=== PATIENT | female | born 1995 | race Caucasian/White ===

== ENCOUNTER 2016-12-05 12:47 | Emergency (ER) | payer OTHER ==
[~2016-12-05] VITALS: Ht 154.9 cm; Wt 80.4 kg
[~2016-12-05 12:47] MED LIST: BENA25MI PO; PRED50TA PO
[2016-12-05 13:03] VITALS: BP 125/75; PULSE 86; RESP 18; TEMP 99; O2SAT 98
--- NOTE | 2016-12-05 15:04 | PD ---
HPI Chief Complaint: Cold / Flu Symptoms Time Seen by Provider: 14:57 Travel History International Travel<30 days: No Contact w/Intl Traveler<30days: No Traveled to known affect area: No History of Present Illness HPI 21-year-old female presents to the emergency room for evaluation of sore throat and cough for the past 2 days. Patient reports history of chronic strep throat. States sore throat started 2 days ago with extreme pain upon swallowing ; nonproductive cough started today. Denies fever, chills, nausea, vomiting. She has not taken anything for her symptoms. No chronic medical conditions or daily medications. PFSH Past Medical History ADHD: Yes Autoimmune Disease: No Anxiety: Yes Depression: Yes Cancer: No Cardiovascular Problems: No Developmental Delay: No Diabetes: No Diminished Hearing: No Gastrointestinal Disorders: No Genitourinary: No Headaches: Yes Hypertension: No Musculoskeletal: Yes (ACL repair left knee in Jan 2012 and Oct 2011) Neurologic: Yes Psychiatric: Yes (PTSD) Respiratory: No Immunizations Current: Yes Migraines: No Seizures: Yes (ADVERSE MEDICATION REACTION) Thyroid Disease: No Ulcer: Yes PNEUMOCCOCAL Vaccine (Year): 2009 ?: Not LMP: 1 week ago Menopausal: No : 0 Para: 0 Miscarriage: 0 : 0 Past Surgical History Section: No Hysterectomy: No Oral Surgery: Yes (GUM SURGERY) Social History Alcohol Use: Yes (daily) Tobacco Use: Yes (1ppd) Substance Use: No Allergies-Medications (Allergen,Severity, Reaction): Coded Allergies: Bee Sting (Verified Allergy, Severe, Anaphylaxis, 12/05/16) Benadryl (Verified Allergy, Severe, CAN NOT TOLERATE IV MED, 12/05/16) Cinnamon (Verified Allergy, Severe, THROAT CLOSING UP, 12/05/16) Concerta (Verified Allergy, Severe, PARALYZES HALF OF BODY, 12/05/16) Lortab (Verified Allergy, Severe, 12/05/16) Morphine (Verified Allergy, Severe, ITCHING/HIVES, 12/05/16) MOTHER STATES ITCHING AND HIVES Toradol (Verified Allergy, Severe, DYSTONIC REACTION, 12/05/16) MOTHER STATES DYSTONIC REACTION Percocet (Verified Adverse Reaction, Intermediate, VOMITING, 12/05/16) MOTHER STATES VOMITTING Reported Meds & Prescriptions Reported Meds & Active Scripts Active No Active Prescriptions or Reported Medications Review of Systems Except as stated in HPI: all other systems reviewed are Neg Physical Exam Narrative GENERAL: Well-nourished, well-developed female in no acute distress. Afebrile. Ambulatory. SKIN: Warm and dry. HEAD: Normocephalic. EYES: No scleral icterus. No injection or drainage. ENT: Mucosa pink and moist. Moderate erythema with bilateral exudates. No uvular edema. No uvular, palatal, or tonsillar deviation. Airway patent. Nasal turbinates appear normal without nasal blood, purulent drainage or septal hematoma. EARS: Bilateral pinnae and external canals appear within normal limits. Bilateral tympanic membranes without erythema, dullness or perforation. NECK: Supple, trachea midline. No JVD or lymphadenopathy. CARDIOVASCULAR: Regular rate and rhythm without murmurs, gallops, or rubs. RESPIRATORY: Breath sounds equal bilaterally. No accessory muscle use. Data Data Last Documented VS Vital Signs Date Time Temp Pulse Resp B/P Pulse Ox O2 Delivery O2 Flow Rate FiO2 12/05/16 13:03 99.0 86 18 125/75 98 Orders Group A Rapid Strep Screen (12/05/16 14:43) [facility] Medical Decision Making Medical Screen Exam Complete: Yes Emergency Medical Condition: Yes Medical Record Reviewed: Yes Differential Diagnosis Streptococcal pharyngitis versus viral pharyngitis versus upper respiratory infection Narrative Course 21-year-old female presents to the emergency room for evaluation of sore throat and nonproductive cough. Sore throat started 2 days ago, cough started today. No history of fever. Vital signs stable. Patient is well-appearing overall. Physical exam reveals moderate erythema of the tonsils with bilateral exudates. Rapid strep is positive. Patient discharged with prescription for amoxicillin and told to follow up with a primary care physician or return to the emergency room for worsening symptoms. She understands and agrees to this plan. Diagnosis Primary Impression: Acute streptococcal pharyngitis Referrals: Primary Care Physician Patient Instructions: General Instructions, Strep Throat (ED) Additional Instructions: Rest and drink plenty of fluids. Take amoxicillin as directed, until gone. Take ibuprofen with food as directed, as needed for pain. Follow-up with a primary care physician. Return to the emergency room for worsening symptoms. Med/Other Pt SpecificInfo: Prescription(s) given Scripts No Active Prescriptions or Reported Meds Disposition: 01 DISCHARGE HOME Condition: Stable Nan Snyder Dec 05, 2016 15:04
[2016-12-05] MEDS ORDERED: AMOX500T PO (15:36)
== END 2016-12-05 15:46 | disposition home or self-care (01) ==
LOC: PHED 12:47 → PHEFT 15:46
DX: J02.0 Streptococcal pharyngitis (principal); B95.8 Unspecified staphylococcus as the cause of diseases classified elsewhere
CPT/HCPCS: 87880; 99283

== ENCOUNTER 2017-04-03 22:16 | Emergency (ER) | payer OTHER ==
[~2017-04-03] VITALS: Ht 154.9 cm; Wt 81.5 kg
[~2017-04-03 22:16] MED LIST changes: +AMOX500T PO; -BENA25MI PO; -PRED50TA PO
[2017-04-03 22:37] VITALS: BP 110/69; PULSE 73; RESP 15; TEMP 98.4; O2SAT 100
[2017-04-03] MEDS ORDERED: PRED20 PO (22:58)
[2017-04-03] MEDS ORDERED: diphenhydrAMINE HCL 50 MG CAP PO ONE (23:00)
[2017-04-03] MEDS ORDERED: predniSONE 20 MG TAB PO ONE ×2 (23:00→23:15)
[2017-04-03] MEDS ORDERED: EPINEPHrine HCL (1:1000) 1 MG/ML VIAL IM ONE (23:00)
--- NOTE | 2017-04-03 23:02 | PD ---
HPI Chief Complaint: Allergic/Adverse Reaction Time Seen by Provider: 22:46 Travel History International Travel<30 days: No Contact w/Intl Traveler<30days: No Traveled to known affect area: No History of Present Illness HPI This 21-year-old female is complaining of shortness of breath. 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 She says is quite a severe allergy. She has been intubated because of that. Today she was exposed to a small amount of salt at work. She left work and went home and then decided to come here because she is having persistent shortness of breath. She does not have any rash. PFSH Past Medical History ADHD: Yes Autoimmune Disease: No Anxiety: Yes Depression: Yes Cancer: No Cardiovascular Problems: No Developmental Delay: No Diabetes: No Diminished Hearing: No Gastrointestinal Disorders: No Genitourinary: No Headaches: Yes Hypertension: No Musculoskeletal: Yes (ACL repair left knee in Jan 2012 and Oct 2011) Neurologic: Yes Psychiatric: Yes (PTSD) Respiratory: No Immunizations Current: Yes Migraines: No Seizures: Yes (ADVERSE MEDICATION REACTION) Thyroid Disease: No Ulcer: Yes PNEUMOCCOCAL Vaccine (Year): 2009 ?: Not LMP: 03-20-17 Menopausal: No : 0 Para: 0 Miscarriage: 0 : 0 Past Surgical History Section: No Hysterectomy: No Oral Surgery: Yes (GUM SURGERY) Social History Alcohol Use: Yes (daily) Tobacco Use: Yes (1ppd) Substance Use: No Allergies-Medications (Allergen,Severity, Reaction): Coded Allergies: Bee Sting (Verified Allergy, Severe, Anaphylaxis, 04/03/17) Benadryl (Verified Allergy, Severe, CAN NOT TOLERATE IV MED, 04/03/17) Cinnamon (Verified Allergy, Severe, THROAT CLOSING UP, 04/03/17) Concerta (Verified Allergy, Severe, PARALYZES HALF OF BODY, 04/03/17) Lortab (Verified Allergy, Severe, 04/03/17) Morphine (Verified Allergy, Severe, ITCHING/HIVES, 04/03/17) MOTHER STATES ITCHING AND HIVES Toradol (Verified Allergy, Severe, DYSTONIC REACTION, 04/03/17) MOTHER STATES DYSTONIC REACTION Percocet (Verified Adverse Reaction, Intermediate, VOMITING, 04/03/17) MOTHER STATES VOMITTING Reported Meds & Prescriptions Reported Meds & Active Scripts Active Amoxicillin 500 Mg Tab 500 Mg PO BID 10 Days Review of Systems General / Constitutional: No: Fever, Chills Eyes: No: Diploplia, Blurred Vision HENT: No: Headaches, Vertigo Cardiovascular: No: Chest Pain or Discomfort Respiratory: Positive: Shortness of Breath, Wheezing Gastrointestinal: No: Vomiting, Diarrhea Genitourinary: No: Urgency, Frequency Musculoskeletal: No: Myalgias, Arthralgias Skin: No Rash, No Itching Physical Exam Narrative GENERAL:Well-developed female SKIN: Focused skin assessment warm/dry. HEAD: Atraumatic. Normocephalic. EYES: Pupils equal and round. No scleral icterus. No injection or drainage. ENT: No nasal bleeding or discharge. Mucous membranes pink and moist. Posterior pharynx is erythematous NECK: Trachea midline. No JVD. No adenopathy CARDIOVASCULAR: Regular rate and rhythm. No murmur appreciated. RESPIRATORY: No accessory muscle use. There are bilateral expiratory wheezes GASTROINTESTINAL: Abdomen soft, non-tender, nondistended. Hepatic and splenic margins not palpable. MUSCULOSKELETAL: No obvious deformities. No clubbing. No cyanosis. No edema. NEUROLOGICAL: Awake and alert. No obvious cranial nerve deficits. Motor grossly within normal limits. Normal speech. PSYCHIATRIC: Appropriate mood and affect; insight and judgment normal. Data Data Last Documented VS Vital Signs Date Time Temp Pulse Resp B/P Pulse Ox O2 Delivery O2 Flow Rate FiO2 04/03/17 22:37 98.4 73 15 110/69 100 Orders Epinephrine (1:1000) Inj (Adrenalin (1:1 (04/03/17 23:00) Prednisone (Deltasone) (04/03/17 23:00) Diphenhydramine (Benadryl) (04/03/17 23:00) [facility] Medical Decision Making Medical Screen Exam Complete: Yes Emergency Medical Condition: Yes Medical Record Reviewed: Yes Differential Diagnosis Differential includes allergic reaction, bronchospasm, Narrative Course Patient is having wheezing related to allergy to cinnamon. Has been given adrenaline, Benadryl and prednisone. Diagnosis Primary Impression: Allergic reaction Qualified Code: T78.40XA - Allergic reaction, initial encounter Scripts Prednisone 20 Mg Tab60 Mg PO DAILY 3 Days Ref 0 40 MG twice a day x 3 days, then 20 MG daily x 3 days, then 10 MG daily x 3 days Prov:Javad Watt MD 04/03/17 Disposition: 01 DISCHARGE HOME Condition: Stable Javad Watt MD April 03, 2017 23:02
[2017-04-03] MEDS ORDERED: DEXAMETHASONE SOD PHOS 4 MG/ML VIAL IM ONE (23:15)
[2017-04-03] MEDS ORDERED: RESP: ALBUTEROL 2.5 MG/IPRATROPIUM 0.5 MG NEB (SCH) NEB ONE (23:30)
[2017-04-04] MEDS ORDERED: EPIP0.3I IM (00:02)
== END 2017-04-04 00:16 | disposition home or self-care (01) ==
LOC: PHED 22:16
DX: T78.1XXA Other adverse food reactions, not elsewhere classified, initial encounter (principal); R06.2 Wheezing; F17.210 Nicotine dependence, cigarettes, uncomplicated; X58.XXXA Exposure to other specified factors, initial encounter; Y92.89 Other specified places as the place of occurrence of the external cause; Y99.0 Civilian activity done for income or pay
CPT/HCPCS: 94664; 96372; 99284; J0171; J1100; J7512; Q0163

== ENCOUNTER 2017-05-11 11:22 | Emergency (ER) | payer OTHER ==
[~2017-05-11] VITALS: Ht 154.9 cm; Wt 81.0 kg
[~2017-05-11 11:22] MED LIST changes: -AMOX500T PO; +EPIP0.3I IM; +PRED20 PO
[2017-05-11 11:27] VITALS: BP 98/64; PULSE 72; RESP 16; TEMP 97.8; O2SAT 98
[2017-05-11] MEDS ORDERED: LOTR1CRE3 TOPICAL (11:49)
--- NOTE | 2017-05-11 11:55 | PD ---
HPI Chief Complaint: Skin Problem Time Seen by Provider: 11:49 Travel History International Travel<30 days: No Contact w/Intl Traveler<30days: No Traveled to known affect area: No History of Present Illness HPI 21-year-old female presents to the emergency room for evaluation of rash to bilateral feet for the past 2+ weeks. 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 She stands in the dirty water for long periods of time while she works. Patient has been applying over-the- counter athlete's foot spray for 1 week but states her symptoms don't seem to be improving at all. Rash is itchy and at times mullen. It is worse when things touch her feet. Denies chronic medical conditions or daily medications. PFSH Past Medical History Medical History: Denies Significant Hx ADHD: Yes Autoimmune Disease: No Anxiety: Yes Depression: Yes Cancer: No Cardiovascular Problems: No Developmental Delay: No Diabetes: No Diminished Hearing: No Gastrointestinal Disorders: No Genitourinary: No Headaches: Yes Hypertension: No Musculoskeletal: Yes (ACL repair left knee in Jan 2012 and Oct 2011) Neurologic: Yes Psychiatric: Yes (PTSD) Respiratory: No Immunizations Current: Yes Migraines: No Seizures: Yes (ADVERSE MEDICATION REACTION) Thyroid Disease: No Ulcer: Yes PNEUMOCCOCAL Vaccine (Year): 2009 ?: Not LMP: 2 WEEKS AGO Menopausal: No : 0 Para: 0 Miscarriage: 0 : 0 Past Surgical History Section: No Hysterectomy: No Oral Surgery: Yes (GUM SURGERY) Social History Alcohol Use: Yes ("often, but no more daily") Tobacco Use: Yes (1ppd) Substance Use: No Allergies-Medications (Allergen,Severity, Reaction): Coded Allergies: Bee Sting (Verified Allergy, Severe, Anaphylaxis, 05/11/17) Benadryl (Verified Allergy, Severe, CAN NOT TOLERATE IV MED, 05/11/17) Cinnamon (Verified Allergy, Severe, THROAT CLOSING UP, 05/11/17) Concerta (Verified Allergy, Severe, PARALYZES HALF OF BODY, 05/11/17) Lortab (Verified Allergy, Severe, DENIES, 05/11/17) Morphine (Verified Allergy, Severe, DENIES, 05/11/17) Toradol (Verified Allergy, Severe, SEIZURES, 05/11/17) Percocet (Verified Adverse Reaction, Intermediate, PT DENIES, 05/11/17) Reported Meds & Prescriptions Reported Meds & Active Scripts Active Lotrimin Ultra Topical (Butenafine HCl) 1% Cream 1 Applic TOPICAL Q12HR Apply to: Epipen 2-Tyson Inj (Epinephrine) 0.3 Mg/0.3 Ml Pfpen 0.3 Mg IM ONCE PRN Prednisone 20 Mg Tab 60 Mg PO DAILY 3 Days 40 MG twice a day x 3 days, then 20 MG daily x 3 days, then 10 MG daily x 3 days Review of Systems Except as stated in HPI: all other systems reviewed are Neg Physical Exam Narrative GENERAL: Well-nourished, well-developed female in no acute distress. Afebrile. Ambulatory. SKIN: Focused skin assessment warm/dry. There are scaling, slightly excoriated annular lesions to bilateral dorsal feet. No plantar involvement. No lymphangitis. No drainage. HEAD: Normocephalic. EYES: No scleral icterus. No injection or drainage. NECK: Supple, trachea midline. No JVD or lymphadenopathy. CARDIOVASCULAR: Regular rate and rhythm without murmurs, gallops, or rubs. RESPIRATORY: Breath sounds equal bilaterally. No accessory muscle use. EXTREMITY: Bilateral feet tender to palpation over the rash. Full range of motion bilaterally. Less than 2 second capillary refill bilaterally. Data Data Last Documented VS Vital Signs Date Time Temp Pulse Resp B/P Pulse Ox O2 Delivery O2 Flow Rate FiO2 05/11/17 11:27 97.8 72 16 98/64 98 MDM Medical Decision Making Medical Screen Exam Complete: Yes Emergency Medical Condition: Yes Medical Record Reviewed: Yes Differential Diagnosis Tinea pedis versus bacterial infection versus MRSA versus cellulitis Narrative Course 21-year-old female presents to the emergency room for evaluation of itchy, burning rash to bilateral feet pain that is ongoing for the past 2 weeks. States she soaks her feet in water at work all day. She has been applying over- the-counter fungal cream without relief in symptoms. Physical exam reveals scaling, excoriated lesions to bilateral dorsal feet. No evidence of secondary infection. This is tinea pedis. Patient discharged with instructions to continue treatment as it may take several weeks for improvement. She understands and agrees to plan. Diagnosis Primary Impression: Tinea pedis Qualified Code: B35.3 - Tinea pedis of both feet Referrals: Primary Care Physician Patient Instructions: General Instructions, Tinea Pedis (ED) Additional Instructions: Rest and drink plenty of fluids. Apply cream to the affected area twice daily for 1-3 weeks. Follow-up with a primary care physician. Return to the emergency room for worsening symptoms. Med/Other Pt SpecificInfo: Prescription(s) given Scripts Butenafine Topical (Lotrimin Ultra Topical)1% Cream1 Applic TOPICAL Q12HR #1 TUBE Ref 0 Apply to: Prov:Dario Raymond MD 05/11/17 Disposition: 01 DISCHARGE HOME Condition: Stable Nan Snyder May 11, 2017 11:54
== END 2017-05-11 12:03 | disposition home or self-care (01) ==
LOC: PHEFT 11:22
DX: B35.3 Tinea pedis (principal); F17.210 Nicotine dependence, cigarettes, uncomplicated
CPT/HCPCS: 99282

== ENCOUNTER 2017-06-04 14:12 | Emergency (ER) | payer SELFPAY ==
[~2017-06-04] VITALS: Ht 154.9 cm; Wt 79.0 kg
[~2017-06-04 14:12] MED LIST changes: +LOTR1CRE3 TOPICAL
[2017-06-04 14:16] VITALS: BP 108/70; PULSE 85; RESP 16; TEMP 98.2; O2SAT 96
--- NOTE | 2017-06-04 15:28 | PD ---
HPI Chief Complaint: Musculoskeletal Complaint Time Seen by Provider: 15:19 Travel History International Travel<30 days: No Contact w/Intl Traveler<30days: No Traveled to known affect area: No History of Present Illness HPI 22-year-old female presents to the emergency room for evaluation of left arm pain after falling last night. Patient tripped over her dog and fell directly on her left arm. She denies hitting her head or loss of consciousness. She had immediate pain. Patient has not taken anything for her symptoms. Pain is worsened with any range of motion, especially abduction. Pain is controlled when her arm is flexed and against her abdomen. Reports intermittent paresthesias. Patient reports history of left humeral head fracture several years ago and states this feels similar to that. PFSH Past Medical History ADHD: Yes Autoimmune Disease: No Anxiety: Yes Depression: Yes Cancer: No Cardiovascular Problems: No Developmental Delay: No Diabetes: No Diminished Hearing: No Gastrointestinal Disorders: No Genitourinary: No Headaches: Yes Hypertension: No Musculoskeletal: Yes (ACL repair left knee in Jan 2012 and Oct 2011) Neurologic: Yes Psychiatric: Yes (PTSD) Respiratory: No Immunizations Current: Yes Migraines: No Seizures: Yes (ADVERSE MEDICATION REACTION) Thyroid Disease: No Ulcer: Yes Influenza Vaccination: No PNEUMOCCOCAL Vaccine (Year): 2009 ?: Not LMP: 2 WEEKS Menopausal: No : 0 Para: 0 Miscarriage: 0 : 0 Past Surgical History Section: No Hysterectomy: No Oral Surgery: Yes (GUM SURGERY) Social History Alcohol Use: Yes ("often, but no more daily") Tobacco Use: Yes (1ppd) Substance Use: No Allergies-Medications (Allergen,Severity, Reaction): Coded Allergies: Bee Sting (Verified Allergy, Severe, Anaphylaxis, 06/04/17) Benadryl (Verified Allergy, Severe, CAN NOT TOLERATE IV MED, 06/04/17) Cinnamon (Verified Allergy, Severe, THROAT CLOSING UP, 06/04/17) Concerta (Verified Allergy, Severe, PARALYZES HALF OF BODY, 06/04/17) Lortab (Verified Allergy, Severe, DENIES, 06/04/17) Morphine (Verified Allergy, Severe, DENIES, 06/04/17) Toradol (Verified Allergy, Severe, SEIZURES, 06/04/17) Percocet (Verified Adverse Reaction, Intermediate, PT DENIES, 06/04/17) Reported Meds & Prescriptions Reported Meds & Active Scripts Active No Active Prescriptions or Reported Medications Review of Systems Except as stated in HPI: all other systems reviewed are Neg Physical Exam Narrative GENERAL: Well-nourished, well-developed female in no acute distress. Afebrile. Ambulatory. Left arm is flexed at the elbow and against her abdomen. SKIN: Focused skin assessment warm/dry. HEAD: Normocephalic. EYES: No scleral icterus. No injection or drainage. NECK: Supple, trachea midline. No JVD or lymphadenopathy. CARDIOVASCULAR: Regular rate and rhythm without murmurs, gallops, or rubs. RESPIRATORY: Breath sounds equal bilaterally. No accessory muscle use. MUSCULOSKELETAL: No cyanosis, or edema. 2+ radial pulse. Radial, ulnar, and median nerves intact. Slight decrease in strength secondary to pain. Limited range of motion secondary to pain. Tenderness to palpation of the left lateral humeral neck. Data Data Last Documented VS Vital Signs Date Time Temp Pulse Resp B/P Pulse Ox O2 Delivery O2 Flow Rate FiO2 06/04/17 14:16 98.2 85 16 108/70 96 Orders Humerus (Min 2vws) (06/04/17 ) [facility] Medical Decision Making Medical Screen Exam Complete: Yes Emergency Medical Condition: Yes Medical Record Reviewed: Yes Differential Diagnosis Fracture, contusion, abrasion, sprain, strain Narrative Course 22-year-old female presents to the emergency room for evaluation of left shoulder pain after trip and fall last night. Patient landed directly on her left shoulder. Denies any other injuries. Physical exam reveals extreme tenderness to palpation of the left humeral neck and pain with range of motion. Patient is holding her elbow flexed and against her abdomen. Left upper extremity is neurovascularly intact with 2+ radial pulse. Radial, ulnar, and median nerves intact. X-ray is negative. This could be internal derangement of the shoulder or contusion. Patient was discharged with instructions to take ibuprofen for pain and follow-up with orthopedist or primary care physician if symptoms persist. She understands and agrees to plan. Diagnosis Primary Impression: Left shoulder pain Qualified Code: M25.512 - Acute pain of left shoulder Referrals: Orthopedist Primary Care Physician Patient Instructions: General Instructions, Shoulder Pain (ED) Additional Instructions: Take ibuprofen with food as directed, as needed for pain. Apply ice to the affected area for 20 minutes at a time, as needed for pain and swelling. Follow-up with a primary care physician. Return to the emergency room for worsening symptoms. Med/Other Pt SpecificInfo: Prescription(s) given Scripts No Active Prescriptions or Reported Meds Disposition: 01 DISCHARGE HOME Condition: Stable Nan Snyder Jun 04, 2017 15:28
--- NOTE | 2017-06-04 15:41 | RADRPT ---
EXAM DATE/TIME: 06/04/2017 15:32 [facility] COMPARISON: No previous studies available for comparison. INDICATIONS : Left humerus pain post fall yesterday MEDICAL HISTORY : Prev. fracture to left humerus SURGICAL HISTORY : None. ENCOUNTER: Initial ACUITY: 1 day PAIN SCORE: 7/10 LOCATION: Left proximal humerus FINDINGS: Two view examination of the left humerus demonstrates no evidence of fracture or dislocation. Bony m ineralization is normal. The soft tissue structures are intact. CONCLUSION: Normal examination for a patient of this age. Rios Siddiqui MD on June 04, 2017 at 15:38 Board Certified Radiologist. This report was verified electronically.
== END 2017-06-04 16:02 | disposition home or self-care (01) ==
LOC: PHED 14:12 → PHEFT 16:02
DX: M25.512 Pain in left shoulder (principal); R20.2 Paresthesia of skin; F17.200 Nicotine dependence, unspecified, uncomplicated; Z87.39 Personal history of other diseases of the musculoskeletal system and connective tissue; Z86.69 Personal history of other diseases of the nervous system and sense organs; Z86.59 Personal history of other mental and behavioral disorders; W01.0XXA Fall on same level from slipping, tripping and stumbling without subsequent striking against object, initial encounter
CPT/HCPCS: 73060; 99283

== ENCOUNTER 2017-07-23 07:22 | Emergency (ER) | payer OTHER ==
[~2017-07-23] VITALS: Ht 154.9 cm; Wt 81.4 kg
[2017-07-23 07:25] VITALS: BP 141/71; PULSE 66; RESP 16; TEMP 98; O2SAT 100
[2017-07-23] MEDS ORDERED: FAMOTIDINE 20 MG TAB PO ONE (08:00)
[2017-07-23] MEDS ORDERED: DEXAMETHASONE SOD PHOS 4 MG/ML VIAL IM ONE (08:00)
[2017-07-23] MEDS ORDERED: RESP: ALBUTEROL 2.5 MG/IPRATROPIUM 0.5 MG NEB (SCH) INH ONE (08:00)
--- NOTE | 2017-07-23 08:22 | PD ---
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 She reports inhaling a small amount of cinnamon work today, [employer] as it is pumpkin spice season. Dyspnea reported. Chest tightness reported. She reports previously from cinnamon allergen exposure dyspnea ensued evidently leading to intubation. At the time of ER evaluation today she has no chest pain however does describe mild dyspnea as of breathing through a straw. PFSH Past Medical History ADHD: Yes Autoimmune Disease: No Anxiety: Yes Depression: Yes Cancer: No Cardiovascular Problems: No Developmental Delay: No Diabetes: No Diminished Hearing: No Gastrointestinal Disorders: No Genitourinary: No Headaches: Yes Hepatitis: No Hiatal Hernia: No Hypertension: No Musculoskeletal: Yes (ACL repair left knee in Jan 2012 and Oct 2011) Neurologic: Yes Psychiatric: Yes (PTSD) Respiratory: No Immunizations Current: Yes Migraines: No Seizures: Yes (ADVERSE MEDICATION REACTION) Thyroid Disease: No Ulcer: Yes PNEUMOCCOCAL Vaccine (Year): 2009 ?: Not LMP: 1 week ago Menopausal: No : 0 Para: 0 Miscarriage: 0 : 0 Ectopic : No Ovarian Cysts: No Dilation and Curettage (D&C): No Tubal Ligation: No Past Surgical History Section: No Hysterectomy: No Oral Surgery: Yes (GUM SURGERY) Social History Alcohol Use: Yes ("often, but no more daily") Tobacco Use: Yes (1ppd) Substance Use: No Allergies-Medications (Allergen,Severity, Reaction): Coded Allergies: bee venom protein (honey bee) (Unverified Allergy, Severe, Anaphylaxis, ) cinnamon (Unverified Allergy, Severe, THROAT CLOSING UP, 07/23/17) diphenhydramine (Unverified Allergy, Severe, CAN NOT TOLERATE IV MED, 07/23) hydrocodone (Unverified Allergy, Severe, DENIES, 07/23/17) ketorolac (Unverified Allergy, Severe, SEIZURES, 07/23/17) methylphenidate (Unverified Allergy, Severe, PARALYZES HALF OF BODY, ) morphine (Unverified Allergy, Severe, DENIES, 07/23/17) acetaminophen (Unverified Adverse Reaction, Intermediate, PT DENIES, ) oxycodone (Unverified Adverse Reaction, Intermediate, PT DENIES, 07/23/17) Reported Meds & Prescriptions Reported Meds & Active Scripts Active Tessalon Perles (Benzonatate) 100 Mg Cap 200 Mg PO TID PRN Epipen 2-Tyson Inj (Epinephrine) 0.3 Mg/0.3 Ml Pfpen 0.3 Mg IM ONCE PRN Proair Hfa 8.5 GM Inh (Albuterol Sulfate) 90 Mcg/Act Aer 2 Puff INH Q4-6H PRN 108 mcg/actuation Review of Systems Except as stated in HPI: all other systems reviewed are Neg General / Constitutional: No: Fever Physical Exam Narrative GENERAL: 22-year-old female well-nourished well-developed pleasant and speaking in full sentences SKIN: Warm and dry. HEAD: Atraumatic. Normocephalic. EYES: Pupils equal and round. No scleral icterus. No injection or drainage. ENT: No nasal bleeding or discharge. Mucous membranes pink and moist. NECK: Trachea midline. No JVD. CARDIOVASCULAR: Regular rate and rhythm. RESPIRATORY: Occasional wheeze. No stridor. GASTROINTESTINAL: Abdomen soft, non-tender, nondistended. Hepatic and splenic margins not palpable. MUSCULOSKELETAL: Extremities without clubbing, cyanosis, or edema. No obvious deformities. NEUROLOGICAL: Awake and alert. No obvious cranial nerve deficits. Motor grossly within normal limits. Five out of 5 muscle strength in the arms and legs. Normal speech. PSYCHIATRIC: Appropriate mood and affect; insight and judgment normal. Data Data Last Documented VS Vital Signs Date Time Temp Pulse Resp B/P (MAP) Pulse Ox O2 Delivery O2 Flow Rate FiO2 07/23/17 08:43 82 18 117/65 (82) 100 Room Air 07/23/17 07:25 98.0 Vital signs reviewed Orders Orders Albuterol-Ipratropium Neb (Duoneb Neb) (07/23/17 08:00) Dexamethasone Inj (Decadron Inj) (07/23/17 08:00) Famotidine (Pepcid) (07/23/17 08:00) Benzonatate (Tessalon) (07/23/17 08:30) MDM Medical Decision Making Medical Screen Exam Complete: Yes Emergency Medical Condition: Yes Medical Record Reviewed: Yes Differential Diagnosis Anaphylaxis, allergic reaction, asthma Narrative Course Following administration of an albuterol nebulizer Decadron and Pepcid the patient began to cough somewhat. No desaturation or rash. We'll send her home with an albuterol inhaler and Tessalon Perles. EpiPen also refilled. Diagnosis Primary Impression: Allergic reaction Qualified Codes: T78.40XA - Allergy, unspecified, initial encounter Referrals: Primary Care Physician call for appointment Additional Instructions: You have a choice when it comes to health care, and we are glad that you chose [facility]. Hopefully, we have met your expectations on today's visit. You are welcome to return to [facility] at any time, as we are committed to meeting the health care needs of our community. Med/Other Pt SpecificInfo: Prescription(s) given Scripts Benzonatate (Tessalon Perles) 100 Mg Cap 200 MG PO TID Y for COUGH, #10 CAP 0 Refills Prov: Mickey Castellanos MD 07/23/17 Epinephrine Inj (Epipen 2-Tyson Inj) 0.3 Mg/0.3 Ml Pfpen 0.3 MG IM ONCE Y for ALLERGIC REACTION, #1 PACK 0 Refills Prov: Mickey Castellanos MD 07/23/17 Albuterol 8.5 GM Inh (Proair Hfa 8.5 GM Inh) 90 Mcg/Act Aer 2 PUFF INH Q4-6H Y for SHORTNESS OF BREATH, #1 INHALER 0 Refills 108 mcg/actuation Prov: Mickey Castellanos MD 07/23/17 Disposition: 01 DISCHARGE HOME Condition: Stable Mickey Castellanos MD Jul 23, 2017 08:22
[2017-07-23] MEDS ORDERED: ALBUAER3 INH (08:25)
[2017-07-23] MEDS ORDERED: EPIP0.3I IM (08:25)
[2017-07-23] MEDS ORDERED: BENZ100 PO (08:28)
[2017-07-23] MEDS ORDERED: BENZONATATE 100 MG CAP PO ONE (08:30)
[2017-07-23 08:43] VITALS: BP 117/65; PULSE 82; RESP 18; O2SAT 100
== END 2017-07-23 09:28 | disposition home or self-care (01) ==
LOC: PHED 07:22
DX: T78.40XA Allergy, unspecified, initial encounter (principal)
CPT/HCPCS: 94664; 96372; 99284; J1100

== ENCOUNTER 2018-04-15 07:44 | Emergency (ER) | payer SELFPAY ==
[~2018-04-15] VITALS: Ht 154.9 cm; Wt 75.0 kg
[~2018-04-15 07:44] MED LIST changes: +ALBUAER3 INH; +BENZ100 PO; -LOTR1CRE3 TOPICAL; -PRED20 PO
[2018-04-15 07:46] VITALS: BP 129/71; PULSE 92; RESP 16; TEMP 98.4; O2SAT 100
--- NOTE | 2018-04-15 08:17 | PD ---
HPI Chief Complaint: ENT Complaint Time Seen by Provider: 07:53 Travel History International Travel<30 days: No Contact w/Intl Traveler<30days: No Traveled to known affect area: No History of Present Illness HPI This 22-year-old female is complaining of sore throat. She had a sore throat for a couple of days. This morning at work she vomited twice. She was coughing at that time. She is not nauseated now. She says there is no chance of . She says that she gets frequent strep throats and often gets psoriasis with the strep throat. She is having trouble swallowing. She has had a slight cough. PFSH Past Medical History ADHD: Yes Autoimmune Disease: No Anxiety: Yes Depression: Yes Cancer: No Cardiovascular Problems: No Developmental Delay: No Diabetes: No Diminished Hearing: No Gastrointestinal Disorders: No Genitourinary: No Headaches: Yes Hepatitis: No Hiatal Hernia: No Hypertension: No Musculoskeletal: Yes (ACL repair left knee in Jan 2012 and Oct 2011) Neurologic: Yes Psychiatric: Yes (PTSD) Respiratory: No Immunizations Current: Yes Migraines: No Seizures: Yes (ADVERSE MEDICATION REACTION) Thyroid Disease: No Ulcer: Yes Influenza Vaccination: No PNEUMOCCOCAL Vaccine (Year): 2009 ?: Not LMP: 2 WEEKS Menopausal: No : 0 Para: 0 Miscarriage: 0 : 0 Ectopic : No Ovarian Cysts: No Dilation and Curettage (D&C): No Tubal Ligation: No Past Surgical History Section: No Hysterectomy: No Oral Surgery: Yes (GUM SURGERY) Social History Alcohol Use: Yes ("often, but no more daily") Tobacco Use: Yes (1ppd) Substance Use: No Allergies-Medications (Allergen,Severity, Reaction): Coded Allergies: bee venom protein (honey bee) (Unverified Allergy, Severe, Anaphylaxis, ) cinnamon (Unverified Allergy, Severe, THROAT CLOSING UP, 04/15/18) diphenhydramine (Unverified Allergy, Severe, CAN NOT TOLERATE IV MED, 04/15) hydrocodone (Unverified Allergy, Severe, DENIES, 04/15/18) ketorolac (Unverified Allergy, Severe, SEIZURES, 04/15/18) methylphenidate (Unverified Allergy, Severe, PARALYZES HALF OF BODY, ) morphine (Unverified Allergy, Severe, DENIES, 04/15/18) acetaminophen (Unverified Adverse Reaction, Intermediate, PT DENIES, ) oxycodone (Unverified Adverse Reaction, Intermediate, PT DENIES, 04/15/18) Reported Meds & Prescriptions Reported Meds & Active Scripts Active Epipen 2-Tyson Inj (Epinephrine) 0.3 Mg/0.3 Ml Pfpen 0.3 Mg IM ONCE PRN Review of Systems General / Constitutional: No: Fever, Chills Eyes: No: Diploplia, Blurred Vision HENT: Positive: Sore Throat Cardiovascular: No: Chest Pain or Discomfort Respiratory: Positive: Cough Gastrointestinal: Positive: Vomiting Genitourinary: No: Urgency, Frequency Musculoskeletal: No: Myalgias Skin: No Rash Neurologic: No: Weakness Psychiatric: No: Anxiety, Depression Hematologic/Lymphatic: No: Easy Bruising Physical Exam Narrative GENERAL: Well-developed female SKIN: Focused skin assessment warm/dry. HEAD: Atraumatic. Normocephalic. EYES: Pupils equal and round. No scleral icterus. No injection or drainage. ENT: No nasal bleeding or discharge. Mucous membranes pink and moist. Some erythema of the posterior pharynx NECK: Trachea midline. No JVD. Few shotty anterior cervical nodes CARDIOVASCULAR: Regular rate and rhythm. No murmur appreciated. RESPIRATORY: No accessory muscle use. Clear to auscultation. Breath sounds equal bilaterally. GASTROINTESTINAL: Abdomen soft, non-tender, nondistended. Hepatic and splenic margins not palpable. MUSCULOSKELETAL: No obvious deformities. No clubbing. No cyanosis. No edema. NEUROLOGICAL: Awake and alert. No obvious cranial nerve deficits. Motor grossly within normal limits. Normal speech. PSYCHIATRIC: Appropriate mood and affect; insight and judgment normal. Data Data Last Documented VS Vital Signs Date Time Temp Pulse Resp B/P (MAP) Pulse Ox O2 Delivery O2 Flow Rate FiO2 04/15/18 09:08 60 16 93/44 (60) 100 Room Air 04/15/18 07:46 98.4 Orders Orders Group A Rapid Strep Screen (04/15/18 08:08) Strep Culture (Group A) (04/15/18 08:10) MDM Medical Decision Making Medical Screen Exam Complete: Yes Emergency Medical Condition: Yes Medical Record Reviewed: Yes Differential Diagnosis Differential includes strep throat, viral illness Narrative Course Test for strep is negative. This is consistent with viral illness. I will prescribe Zofran in case her nausea and vomiting recurs Diagnosis Primary Impression: Viral syndrome Departure Forms: Tests/Procedures, Work Release Enter return to work date: April 17, 2018 Scripts Ondansetron Odt (Zofran Odt) 4 Mg Tab 4 MG SL Q6HR Y for Nausea/Vomiting, #10 TAB 0 Refills Prov: Javad Watt MD 04/15/18 Disposition: 01 DISCHARGE HOME Condition: Stable Javad Watt MD April 15, 2018 08:16
[2018-04-15 09:08] VITALS: BP 93/44; PULSE 60; RESP 16; O2SAT 100
[2018-04-15] MEDS ORDERED: ZOFR4TAB3 SL (09:34)
== END 2018-04-15 09:42 | disposition home or self-care (01) ==
LOC: PHED 07:44
DX: B34.9 Viral infection, unspecified (principal); F90.9 Attention-deficit hyperactivity disorder, unspecified type; F43.10 Post-traumatic stress disorder, unspecified; F17.200 Nicotine dependence, unspecified, uncomplicated; Z86.69 Personal history of other diseases of the nervous system and sense organs; Z88.5 Allergy status to narcotic agent; Z88.6 Allergy status to analgesic agent; Z88.8 Allergy status to other drugs, medicaments and biological substances
CPT/HCPCS: 87081; 87880; 99283